=== PATIENT | male | born 1995 | race Caucasian/White ===

== ENCOUNTER → 2023-09-08 11:07 | Outpatient (REF) | payer MEDICAID, SELFPAY ==
--- NOTE | 2023-09-08 11:13 | CA_ITS ---
Transthoracic Echocardiogram Patient (Last, First, Middle): Manfred Bender, Gender: Male Date of : 1995 Age: 27 Procedure Date: 09/08/2023 Procedure Type: Transthoracic Echocardiogram Location: OP Height: 175.26 cm Weight: 81.65 kg BSA: 1.98 m2 Heart Rate: 65 bpm BP: 115 / 70 mmHg Chemist Helper: SB Referring MD: Ruy Mejia MD Symptoms: R01.1 [place]. Study Quality: Adequate ECG Rhythm: Sinus Conclusions: - The calculated ejection fraction is 65% by biplane method. There is no evidence of regional wall motion abnormalities. - No obvious valvular pathology seen on this study. Findings Left Ventricle Normal left ventricular cavity size. The left ventricular systolic function is normal. The calculated ejection fraction is 65% by biplane method. There is no evidence of regional wall motion abnormalities. Diastolic function is normal for age. There is mild septal asymmetric hypertrophy. LV peak GLS 21.6%. Right Ventricle There is normal right ventricular systolic function. Top normal RV size. Atria Both atria are normal in size. Aortic Valve There is a normal trileaflet aortic valve. There is no aortic valve stenosis. There is no aortic valve regurgitation. Mitral Valve The mitral valve appears normal. There is trace mitral valve regurgitation. There is no mitral valve stenosis. Pulmonic Valve The pulmonic valve is likely normal. Tricuspid Valve Normal tricuspid valve structure. There is trace tricuspid valve regurgitation. There is no evidence of pulmonary hypertension. Great Vessels The asc aorta and aortic arch are normal in size. Venous The inferior vena cava is normal in size and collapses greater than 50% with inspiration. Pericardium/Pleural There is no evidence of pericardial effusion. Prior Study Comparison No prior study available for comparison. Recommendations, Care & Conclusions No obvious valvular pathology seen on this study. Measurements 2D Linear Measurements IVSd: 1.16 0.6-0.9/0.6-1.0 cm LVIDd: 4.74 3.9-5.3/4.2-5.9 cm LVIDd Index: 2.39 2.4-3.2/2.2-3.1 cm/m2 LVIDs: 3.10 2.0-3.6 cm LVPWd: 0.82 0.7-1.1 cm LA Diam: 4.30 2.7-3.8/3.0-4.0 cm LAIDs Index: 2.17 1.5-2.3 cm/m2 LV Mass: 204.28 67-162/88-224 g LV Mass Index: 103.17 43-95/49-115 g/m2 LVOT Diam: 2.20 3.0+(-)1.3 cm 2D Systolic Function EF 4C: 58.40 >55% EF 2C: 71.60 >55% EF BiP: 64.80 >55% Mitral Valve MV Pk E: 0.82 MV PK A: 0.51 MV Decel Time: 197.00 E/A: 1.60 E'Lateral: 15.20 E'Medial: 8.38 E/E' Med: 9.80 E/E' Lat: 5.40 PHT: 58.00 MVA PHT: 3.79 Decel [place]: 4.16 Aortic Valve AoV Pk Niles: 1.70 AoV Pk Grad: 12.00 GET: 3.82 LVOT LVOT Pk Niles: 1.71 LVOT Mn Niles: 1.09 LVOT VTI: 0.32 LVOT Pk Grad: 12.00 LVOT Mn Grad: 6.00 LVOT Diam: 2.20 LVOT Area: 3.80 Diastolic Function MV Pk E: 0.82 MV Pk A: 0.51 E/A: 1.60 E'Medial: 8.38 E/E' Med: 9.80 E' Laterial: 15.20 E/E' Lat: 5.40 Right Ventricle TAPSE (mm): 19.40 TVS' Niles: 12.30 Tricuspid Valve TR Pk Niles: 1.60 TR Pk Grad: 10.00 RA Press: 3.00 RVSP: 13.00 Great Vessels Aorta Sinus of Valsalva: 3.00 2.0-3.5 cm Ao Asc: 3.10 2.1-3.4 cm Ao Arch: 2.50 Ao Desc: 1.70 Pulmonary Veins Pulm Vein S/D 0.70 Pulmonary Valve PV Pk Nlies: 1.36 Peak PV Grad: 7.00 OR Pk Niles: 1.64 Updated in Other Vendor System with Status of Final Jim Avila MD electronically signed on 09/09/2023 3:07:45 PM with status of Final
== END ==
LOC: HO.CARD 11:07
PROVIDERS: PCP Internal Medicine; Visit Provider Internal Medicine
DX: R01.1 Cardiac murmur, unspecified (principal)
CPT/HCPCS: 93306; 93356

== ENCOUNTER → 2023-09-08 11:13 | Outpatient (BNV) | payer MEDICAID, SELFPAY | PROVIDERS: PCP Internal Medicine; Visit Provider Internal Medicine | DX: R01.1 Cardiac murmur, unspecified (principal) | CPT/HCPCS: 93306 ==

== ENCOUNTER 2025-01-01 12:34 | Outpatient (REF) | payer MEDICAID, SELFPAY ==
[2025-01-01 14:36] LABS: Syphilis Screen Nonreactive (Nonreactive)
--- OUTSIDE RECORDS SUMMARY | 2025-01-01 15:03 | XMS_ITS | Encounter Summary ---
Author Organization [facility] Address [address] [place] [address] Care Team Providers Care Beam Department Supervisor Name Role Phone Unavailable Primary Care Provider Unavailabl e Encounter Details Date Type Department Care Team (Late st Contact Info) Description 08/29/2022 Transcribed Orders [facility] [address] [place] [id number] System, Provider Not In Mood disorder (HC Code) (HC CODE) (HC Code) (Primary Dx) Social History Tobacco Use Types Packs/Day Years Used Date Smoking Tobacco: Never Assessed Sex and Gender Information Value Date Recorded Sex Assigned at Not on file Legal Sex Male 10:47 AM EST Gender Identity Male 08/29/2022 9:26 AM EST Sexual Orientation Not on file documented as of this encounter Plan of Treatment Not on file documented as of this encounter Results * Midtown level (08/29/2022 9:52 AM EST) [place] Lvl 1.01 0.60 - 1.20 mmol/L 08/29/2022 12:17 PM EST [facility] Blood Venipuncture / Unknown 08/29/2022 9:52 AM EST 08/29/2022 9:54 AM EST us Provider Not In System LAB BLOOD ORDERABLES Anitha wyatt Result L + [facility] [address] [place] [address] * (ABNORMAL) Electrolyte panel (08/29/2022 9:52 AM EST) Sodium 141 136 - 145 mmol/L 08/29/2022 10:30 AM EST [facility] Potassium 3.9 3.5 - 5.1 mmol/L 08/29/2022 10:30 AM EST [facility] Chloride 109(H) 98 - 107 mmol/L 08/29/2022 10:30 AM EST [facility] CO2 28 21 - 32 mmol/L 08/29/2022 10:30 AM EST [facility] Anion Gap 4(L) 5 - 15 mmol/L 08/29/2022 10:30 AM EST [facility] Blood Venipuncture / Unknown 08/29/2022 9:52 AM EST 08/29/2022 9:54 AM EST us Provider Not In System LAB BLOOD ORDERABLES Anitha l Result Performing Organization Address City/State/[facility] Co de Phone Number [facility] [address] [facility] [address] [phone] documented in this encounter Visit Diagnoses Diagnosis Mood disorder (HC Code)- Primary Unspecified episodic mood disorder documented in this encounter
--- OUTSIDE RECORDS SUMMARY | 2025-01-01 15:03 | XMS_ITS | Clinical Summary ---
Author Organization [facility] [address] [facility] Address [address] [place] [address] Care Team Providers Care Fiber Worker Name Role Phone Unavailable Primary Care Provider Unavailabl e Active Problems No known active problems Resolved Problems Problem Noted Date Diagnosed Date Resolved Date Foot pain, right 10/10/2022 10/10/2022 Social History Tobacco Use Types Packs/Day Years Used Date Smoking Tobacco: Never Assessed Sex and Gender Information Value Date Recorded Sex Assigned at Not on file Legal Sex Male 10:47 AM EST Gender Identity Male 08/29/2022 9:26 AM EST Sexual Orientation Not on file Plan of Treatment Health Maintenance Due Date Last Done Comments HIV screening 12/24/2007 Hepatitis C screening 2012 Tetanus adult (Td q 10,TDAP once) 2014 Influenza vaccine 05/02/2024 Covid-19 vaccine series ( - 2023- season) 2024 RSV Immunization (1 - 1-dose 75+ series) 2069 Meningococcal Vaccine Aged Out No stella monica eligible based on patient's age to complete this topic Pneumococcal Vaccine (2 - 49 years) Aged Out No longer eligible based on patient's age to complete this topic Insurance [facility]
[2025-01-01 16:32] LABS: CT PCR NOT DETECTED (Not Detect.); NG PCR NOT DETECTED (Not Detect.)
[2025-01-02 10:18] LABS: Herpes Simplex Type 1 IgG <0.90 index; Herpes Simplex Type 2 IgG <0.90 index
[2025-01-02 17:49] LABS: HIV RNA PCR Qn Copies NOT DETECTED copies/mL (NOT DETECTED); HIV RNA PCR Qn Log Copies NOT DETECTED (NOT DETECTED)
== END 2025-01-01 12:35 | disposition home or self-care (01) ==
LOC: HO.LAB 12:34
PROVIDERS: PCP Internal Medicine; Visit Provider Internal Medicine
DX: Z20.2 Contact with and (suspected) exposure to infections with a predominantly sexual mode of transmission (principal)
CPT/HCPCS: 36415; 86695; 86696; 86780; 87491; 87536; 87591